=== PATIENT | male | born 1955 | race Caucasian/White ===

== ENCOUNTER 2016-06-26 10:55 | Day surgery (SDC) | payer BC, OTHER ==
[2016-06-24 18:19] LABS: BUN (BLOOD UREA NITROGEN) 26 MG/DL (6-23); CALCIUM, SERUM 9.6 MG/DL (8.5-10.4); CHLORIDE, SERUM 104 MMOL/L (96-112); CO2 (CARBON DIOXIDE) 28 MMOL/L (24-34); CREATININE 1.06 MG/DL (0.70-1.30); GFR AFRICAN AMERICAN 87 ML/MIN (>=60); GFR NON AFRICAN AMERICAN 75 ML/MIN (>=60); POTASSIUM, SERUM 4.3 MMOL/L (3.5-5.3); SODIUM, SERUM 140 MMOL/L (135-148)
[2016-06-24 18:20] LABS: GLUCOSE, SERUM 304 MG/DL (60-99)
[2016-06-25 10:36] LABS: HEMATOCRIT 48.9 % (40.0-51.0); HEMOGLOBIN 15.3 g/dL (13.6-17.8)
[~2016-06-26 10:55] MED LIST: ALEVE220 MG PO; ASAB PO; BYSTOLIC10 MG PO; CRESTOR10 PO; DSS PO; FLEX PO; GLUCPH PO; HYDROCHLOROT12.5 MG PO; LIOR10 PO; LORTAB10 PO; METHOC750B PO; NEUR100 PO; NEUR600 PO; NICODERM C21 MG/241 TOP; OPANA ER10 MG PO; OXYCON10 PO; PERCOCET 10/3251 TAB PO; PERCOCET1 TA4 PO; PRIN10 PO; TOPXL50 PO; TRAZ100 PO; TRAZ50 PO; V5 PO
== END 2016-06-26 15:59 | disposition home or self-care (01) ==
LOC: IMGHOLD 10:55 → SSU1 11:45 → IMGHOLD 13:11
PROVIDERS: Physician Assistant
DX: M48.00 Spinal stenosis, site unspecified (principal); I25.10 Atherosclerotic heart disease of native coronary artery without angina pectoris; G47.33 Obstructive sleep apnea (adult) (pediatric); F17.200 Nicotine dependence, unspecified, uncomplicated; I10 Essential (primary) hypertension; E11.9 Type 2 diabetes mellitus without complications; J45.909 Unspecified asthma, uncomplicated; E78.00 Pure hypercholesterolemia, unspecified; J44.9 Chronic obstructive pulmonary disease, unspecified; I25.2 Old myocardial infarction; Z90.49 Acquired absence of other specified parts of digestive tract; Z99.81 Dependence on supplemental oxygen; Z88.5 Allergy status to narcotic agent; Z87.442 Personal history of urinary calculi; Z98.890 Other specified postprocedural states
CPT/HCPCS: 36415; 72148; 80048; 82962; 85014; 85018; 93005; J2250

== ENCOUNTER 2016-07-23 11:07 | Day surgery (SDC) | payer BC, OTHER ==
[2016-07-17 09:37] LABS: HEMATOCRIT 45.5 % (40.0-51.0); HEMOGLOBIN 14.7 g/dL (13.6-17.8)
[2016-07-17 09:49] LABS: BUN (BLOOD UREA NITROGEN) 23 MG/DL (6-23); CALCIUM, SERUM 9.2 MG/DL (8.5-10.4); CHLORIDE, SERUM 101 MMOL/L (96-112); CO2 (CARBON DIOXIDE) 32 MMOL/L (24-34); CREATININE 1.17 MG/DL (0.70-1.30); GFR AFRICAN AMERICAN 78 ML/MIN (>=60); GFR NON AFRICAN AMERICAN 67 ML/MIN (>=60); GLUCOSE, SERUM 327 MG/DL (60-99); POTASSIUM, SERUM 4.5 MMOL/L (3.5-5.3); SODIUM, SERUM 139 MMOL/L (135-148)
== END 2016-07-23 16:48 | disposition home or self-care (01) ==
LOC: IMGHOLD 11:07 → SSU2 11:22
PROVIDERS: Physician Assistant
DX: M54.2 Cervicalgia (principal); I10 Essential (primary) hypertension; I25.10 Atherosclerotic heart disease of native coronary artery without angina pectoris; J44.9 Chronic obstructive pulmonary disease, unspecified; J45.909 Unspecified asthma, uncomplicated; F17.210 Nicotine dependence, cigarettes, uncomplicated; G47.33 Obstructive sleep apnea (adult) (pediatric); E11.9 Type 2 diabetes mellitus without complications; E78.5 Hyperlipidemia, unspecified; I25.2 Old myocardial infarction; G62.9 Polyneuropathy, unspecified; E78.00 Pure hypercholesterolemia, unspecified; Z99.81 Dependence on supplemental oxygen; Z90.49 Acquired absence of other specified parts of digestive tract; Z87.442 Personal history of urinary calculi; Z98.41 Cataract extraction status, right eye; Z98.42 Cataract extraction status, left eye; Z96.1 Presence of intraocular lens; Z98.890 Other specified postprocedural states
CPT/HCPCS: 72141; 80048; 82962; 85014; 85018; J2250; J3010